=== PATIENT | female | born 1940 | race Two or more races ===

== ENCOUNTER 2018-05-04 11:35 | Inpatient (IN) | payer OTHER ==
[~2018-05-04] VITALS: Ht 162.6 cm; Wt 92.9 kg
[2018-05-04 12:25] LABS: Basophils # (auto) 0 uL; Basophils % (auto) 0.7 % (0.0-2.0); Eosinophils # (auto) 0.2 uL; Eosinophils % (auto) 3.3 % (0.0-7.0); Hematocrit 42.7 % (36.0-46.0); Hemoglobin 13.5 g/dL (12.2-16.2); Lymphocytes # (auto) 1.5 uL; Mean Corpuscular Hemoglobin 28.4 pg (28.0-32.0); Mean Corpuscular Hgb Conc. 31.5 g/dL (32.0-36.0); Monocytes # (auto) 0.4 uL; Monocytes % (auto) 7.3 % (0.0-12.0); Neutrophils # (auto) 3.5 uL; Neutrophils % (auto) 61.7 % (37.0-80.0); Nucleated Red Blood Cells % 0.2 %; Platelet Count (auto) 114 10^3/uL (140-450); Red Blood Cells 4.75 10^6/uL (4.0-5.20); Red Cell Distribution Width 15.7 % (11.8-14.3); White Blood Cell 5.7 10^3/uL (4.4-10.8)
[2018-05-04 12:42] LABS: Albumin 3.3 g/dL (3.4-5.0); Calcium 8.6 mg/dL (8.5-10.1); Magnesium 2.7 mg/dL (1.6-2.6); Potassium 4.3 mmol/L (3.5-5.1)
[2018-05-04 12:48] LABS: BUN/Creatinine Ratio 25.4; Bilirubin, Total 1.5 mg/dL (0.2-1.0); Total Protein 6.8 g/dL (6.4-8.2)
[2018-05-04 13:58] LABS: Urine Bacteria FEW /hpf (None Seen); Urine Blood Negative /uL (Negative); Urine Mucus FEW (None Seen); Urine Specific Gravity 1.009 (1.001-1.035); Urine WBC 2 /hpf (0 - 5)
[2018-05-04 14:28] LABS: INR 1.05 (0.9-1.15); Partial Thromboplastin Time 27.3 sec (23.78-33.04); Prothrombin Time 11.2 sec (9.27-12.13)
[2018-05-04] MEDS ORDERED: cefTRIAXone 1GM/50ML D5W 50 ML IV ONE ×2 (14:30→15:00)
[2018-05-04] MEDS ORDERED: FUROSEMIDE 40 MG/4 ML VIAL IV ONE (14:30)
[2018-05-04] MEDS ORDERED: TEMAZEPAM 15 MG CAP PO PRN (15:00)
[2018-05-04] MEDS ORDERED: LACTULOSE 20Gm/30ML SOLN PO PRN (15:00)
[2018-05-04] MEDS ORDERED: MORPHINE SULFATE 10 MG/ML INJ 1ML SDV IV PRN ×2 (15:00)
[2018-05-04] MEDS ORDERED: HYDROcodone-ACET 5/325MG TAB PO PRN (15:00)
[2018-05-04] MEDS ORDERED: NITROGLYCERIN 0.4 MG SL TAB SL PRN (15:00)
[2018-05-04] MEDS ORDERED: LORazepam 0.5 MG TAB PO PRN (15:00)
[2018-05-04] MEDS ORDERED: PROMETHAZINE HCL 25 MG/ML 1ML IV PRN (15:00)
[2018-05-04] MEDS: FUROSEMIDE 40 MG/4 ML VIAL IV SCH (19:00)
[2018-05-04] MEDS: SODIUM CHLOR 0.9% PF (SALINE LOCK) 10ML VIAL/SYR IV SCH (22:49)
[2018-05-04] MEDS: CARVEDILOL 3.125 MG TAB PO SCH (22:52)
[2018-05-05 01:00] VITALS: BP 86/52
--- NOTE | 2018-05-05 01:00 | NUR ---
Admit to [facility] admitted to [facility] via gurney on rn cardiac cath, and portable 02. Patient transferred to bed, connected to unit monitoring and oxygen, and [facility]. Patient oriented to Maria Alejandra Orellana, primary RN, unit, room, bed, and unit policies regarding patient care and visiting hours. All questions and concerns addressed, patient verbalized understanding.
--- NOTE | 2018-05-05 03:18 | NUR ---
IV insertion IV access obtained, via clean sterile technique by inserting 20 gauge catheter at left hand after 2 attempts. IV secured properly. No trauma to site. Patient tolerated procedure well.
[2018-05-05] MEDS: SODIUM CHLOR 0.9% PF (SALINE LOCK) 10ML VIAL/SYR IV SCH ×3 (07:04→21:57)
[2018-05-05] MEDS: FUROSEMIDE 40 MG/4 ML VIAL IV SCH ×2 (07:06→17:45)
[2018-05-05 07:25] LABS: Potassium 4.1 mmol/L (3.5-5.1)
--- NOTE | 2018-05-05 07:30 | NUR ---
RECEIVED PATIENT SITTING UP IN THE BED, O2 AT 3L BY N/C, A/O TIMES 4, NO COMPLAINTS OF PAIN, STATES SHE CAN USE THE BSC, 20G SALINE LOCK TO THE LEFT HAND FLUSHED AND PATENT
[2018-05-05 07:34] LABS: Albumin 2.9 g/dL (3.4-5.0); Bilirubin, Total 1.5 mg/dL (0.2-1.0); Calcium 8.5 mg/dL (8.5-10.1); Total Protein 6.3 g/dL (6.4-8.2)
[2018-05-05 08:00] VITALS: BP 111/68
--- NOTE | 2018-05-05 08:30 | NUR ---
SAT UP IN BED AND ATE HER BREAKFAST
[2018-05-05] MEDS ORDERED: ATOR10TA PO (09:15)
[2018-05-05] MEDS ORDERED: IVAB1.7T PO (09:15)
[2018-05-05] MEDS ORDERED: SACU1TAB PO (09:15)
[2018-05-05] MEDS ORDERED: POTA10TA51 PO (09:15)
[2018-05-05] MEDS ORDERED: CLOP75TA41 PO (09:15)
[2018-05-05] MEDS ORDERED: ACET-1304 PO (09:15)
[2018-05-05] MEDS ORDERED: FURO40TA4 PO (09:15)
[2018-05-05] MEDS ORDERED: CAR125T PO (09:15)
--- NOTE | 2018-05-05 09:30 | NUR ---
VENOUS DOPPLER STUDY BEING DONE
[2018-05-05] MEDS: NITROGLYCERIN 0.2MG/HR TOPICAL PATCH TD SCH (10:00)
[2018-05-05] MEDS ORDERED: POTASSIUM CHL 20 Meq TABLET PO SCH (10:00)
[2018-05-05] MEDS ORDERED: FUROSEMIDE 40 MG/4 ML VIAL IV SCH (10:00)
[2018-05-05] MEDS: CARVEDILOL 3.125 MG TAB PO SCH ×2 (10:00→22:00)
[2018-05-05] MEDS ORDERED: ENOXAPARIN SOD 40 MG/0.4 ML SYRINGE SC SCH (10:00)
[2018-05-05] MEDS: ENALAPRIL MALEATE 2.5 MG TAB PO SCH (10:00)
[2018-05-05] MEDS: ASPirin 81 mg TAB PO SCH (10:00)
--- NOTE | 2018-05-05 10:10 | NUR ---
UP TO THE BESIDE COMMODE AND URINATED
--- NOTE | 2018-05-05 10:17 | NUR ---
ORDER AND CLINICALS FAXED TO [facility] REQUESTING HOME HEALTH.
--- NOTE | 2018-05-05 10:30 | NUR ---
IN TO VISIT WITH THE PATIENT
[2018-05-05] MEDS: PANTOPRAZOLE 40 MG TAB PO SCH (11:00)
[2018-05-05] MEDS: cefTRIAXone 1GM/50ML D5W 50 ML IV SCH (11:00)
[2018-05-05] MEDS: POTASSIUM EFFERVESENT TAB 25 MEQ PO SCH (11:00)
--- NOTE | 2018-05-05 11:00 | NUR ---
EXPLAIN MEDICATIONS TO THE PATIENT REGARDING THE DOSAGE, USAGE, AND THE SIDE EFFECTS, VERBALIZED THAT SHE UNDERSTOOD BUT B/P MED HELD DUE TO B/P BEING LESS THAN 100
[2018-05-05] MEDS: ENOXAPARIN SOD 40 MG/0.4 ML SYRINGE SC SCH (11:01)
--- NOTE | 2018-05-05 11:43 | NUR ---
UP TO THE BSC GET SO WITH ACTIVITY WHEN GETTING UP
[2018-05-05 11:50] VITALS: BP 104/64
--- NOTE | 2018-05-05 12:30 | NUR ---
SAT UP IN BED AND ATE HER LUNCH NO HELP NEEDED
--- NOTE | 2018-05-05 13:30 | NUR ---
IN TO VISIT DENIES PAIN AT THIS TIME
--- NOTE | 2018-05-05 14:17 | NUR ---
GETTING UP TO THE BSC STILL GETS SOB WITH MOVING OUT OF THE BED
--- NOTE | 2018-05-05 15:26 | NUR ---
IN TO SEE THE PATIENT
[2018-05-05 15:53] VITALS: BP 90/44
--- NOTE | 2018-05-05 16:45 | NUR ---
TYLENOL GIVEN FOR H/A 10/26
[2018-05-05] MEDS: ACETAMINOPHEN 500 MG TAB PO PRN (16:46)
--- NOTE | 2018-05-05 17:34 | NUR ---
SITTING UP IN THE BED WITH EYES CLOSED, NO COMPLAINTS
[2018-05-05] MEDS ORDERED: DOBUTamine 1000MCG/ML 250 ML IV SCH (17:45)
--- NOTE | 2018-05-05 18:37 | NUR ---
DR KEITA IN TO SEE THE PATIENT AND STATED TO START HER ON DOBUTAMINE AND TO ONLY HOLD THE LASIX IF THE B/P IS 80 OR LESS Addendum: 05/05/18 at 1840 by Veronica Lazar RN CHANGE TIME TO 173O
--- NOTE | 2018-05-05 18:40 | NUR ---
SITTING UP IN THE BED EATING HER DINNER, ONLY WANTED JELL-O AND FRUIT, A/O TIMES 4, NO COMPLAINTS OF PAIN, O2 AT 3L BY N/C, SALINE LOCK TO THE LEFT HAND INTACT, FLUSHED AND PATENT GETTING UP TO THE BSC, WILL CONTINUE TO MONITOR AND GIVE REPORT TO THE NEXT SHIFT
[2018-05-05 19:45] VITALS: BP 105/50
--- NOTE | 2018-05-05 20:00 | NUR ---
Opening Shift Note Assumed care of patient, awake and alert. Breathing even and nonlabored at rest, on O2NC 4LPM, No S/S of distress/SOB. Denies pain. Saline lock at left, flushed well, CDI site. Due to void, BSC at bedside. Bed in low position, call light within reach, all alarms are audible, fall and safety precautions in place. Will administer Dobutrex IV as ordered. Instructed on POC and to call for assist PRN, will continue to monitor for changes Q1hr and PRN. Addendum: 05/06/18 at 0319 by Deni Son RN PM care offered, Pt will call when ready.
[2018-05-05] MEDS: DOBUTamine 1000MCG/ML 250 ML IV SCH (20:17)
--- NOTE | 2018-05-05 20:20 | NUR ---
Elimination Pt went to BSC by self, voided 350ml clear yellowish urine, wiped self. Pt has SOB with exertion, deep breathing exercise and relaxation technique encouraged. Pt verbalized understanding and will comply. Continue care.
--- NOTE | 2018-05-05 22:00 | NUR ---
João alba, unable to weigh. Addendum: 05/06/18 at 0622 by Deni Son RN Amended: Links added.
--- NOTE | 2018-05-05 22:00 | NUR ---
IV removal IV DC'd with clean sterile technique, catheter fully intact. Pressure dressing applied to site. Patient tolerated well. IV insertion IV access obtained, via clean sterile technique by inserting 22 gauge catheter at right hand after 1 attempt. IV secured properly. No trauma to site. Patient tolerated well. NOTE:
[2018-05-06] VITALS: BP 121/59
--- NOTE | 2018-05-06 | NUR ---
Condition update V/S stable. No fever. C/O headache, will administer Tylenol as order, see EMAR for details. Continue care.
[2018-05-06] MEDS: ACETAMINOPHEN 500 MG TAB PO PRN ×2 (00:10→19:40)
--- NOTE | 2018-05-06 02:45 | NUR ---
Elimination/ Bathe Pt got OOB for urination. Voided 150ml clear yellowish urine. Asked for AM care. Assisted with mouth care done, partial bath and linen changed done. Will clean the rest after Pt get OOB to BSC next time. Continue care.
[2018-05-06] MEDS: DOBUTamine 1000MCG/ML 250 ML IV SCH ×2 (05:28→15:23)
[2018-05-06] MEDS: SODIUM CHLOR 0.9% PF (SALINE LOCK) 10ML VIAL/SYR IV SCH ×3 (05:45→22:28)
[2018-05-06] MEDS: FUROSEMIDE 40 MG/4 ML VIAL IV SCH (05:45)
--- NOTE | 2018-05-06 06:00 | NUR ---
IV insertion/ Summary IV access obtained, via clean sterile technique by inserting 22 gauge catheter at right FA after 2 attempt(s). IV secured properly. No trauma to site. Patient tolerated procedure well. Pt able to sleep better last night. AM care done, linen changed. Skin assessed done, no new changes. Continue care and will endorsed to day nurse.
[2018-05-06 06:39] LABS: BUN/Creatinine Ratio 22.1; Calcium 8.3 mg/dL (8.5-10.1); Potassium 3.7 mmol/L (3.5-5.1)
--- NOTE | 2018-05-06 07:30 | NUR ---
RECEIVED PATIENT SITTING UP IN THE BED STATES SHE IS FEELING BETTER, A/O TIMES 4, O2 AT 3L BY N/C PLACED HUMIDIFIER STATES NOSE IS GETTING DRY AND BLEEDING, GETTING UP TO THE BSC, SALINE LOCK TO THE RFA 22G INTACT AND PATENT, RT HAND WITH DOBUTAMINE AT 5MCG INFUSING BY THER IV PUMP, DENIES PAIN BUT STATES SHE IS URINATING A LOT, EXPRESS TO HER IT IS BECAUSE OF THE LASIX, STATES SHE KNOWS , STATES HER LEGS AND ARMS ARE STILL SWOLLEN
--- NOTE | 2018-05-06 07:50 | NUR ---
ALFREDO PACEMAKER REP HER TO INVESTIGATE THE PACEMAKER
[2018-05-06 08:00] VITALS: BP 105/59
--- NOTE | 2018-05-06 08:30 | NUR ---
SAT UP IN BED AND ATE HER BREAKFAST NO HELP NEEDED
[2018-05-06] MEDS: cefTRIAXone 1GM/50ML D5W 50 ML IV SCH (09:08)
[2018-05-06] MEDS: ASPirin 81 mg TAB PO SCH (09:27)
--- NOTE | 2018-05-06 09:32 | NUR ---
DR CHOPRA IN TO SEE THE PATIENT AND STATED HE IS GOING TO TRANSFER HER TO [facility]
--- NOTE | 2018-05-06 09:49 | NUR ---
PATIENT WILL TRANSFER TO [facility] WHEN BED IS AVAILABLE. [facility] HAS BEEN PUT ON WILL CALL WITH [facility]. AUTH [id number]. PLEASE CALL [facility] AT [phone] WHEN PATIENT IS READY TO TRANSPORT
[2018-05-06] MEDS: ENALAPRIL MALEATE 2.5 MG TAB PO SCH (10:00)
[2018-05-06] MEDS: ENOXAPARIN SOD 40 MG/0.4 ML SYRINGE SC SCH (10:00)
[2018-05-06] MEDS: NITROGLYCERIN 0.2MG/HR TOPICAL PATCH TD SCH (10:00)
[2018-05-06] MEDS: CARVEDILOL 3.125 MG TAB PO SCH ×2 (10:14→22:00)
[2018-05-06] MEDS: PANTOPRAZOLE 40 MG TAB PO SCH (10:15)
[2018-05-06] MEDS: POTASSIUM EFFERVESENT TAB 25 MEQ PO SCH (10:15)
--- NOTE | 2018-05-06 10:15 | NUR ---
IN TO VISIT WITH THE PATIENT
--- NOTE | 2018-05-06 10:20 | NUR ---
DISCUSSED MEDICATIONS WITH THE PATIENT REGARDING THE DOSAGE, USAGE, AND THE SIDE EFFECTS, VERBALIZED SHE UNDERSTOOD AND MEDS TAKEN ORDERED EXCEPT THE NITRO PATCH AND THE LOVENOX PATIENT REFUSED, STATES SHE IS GETTING UP AND TURNING HERSELF IN THE BED,
--- NOTE | 2018-05-06 11:20 | NUR ---
ALFREDO PACEMAKER REP BACK TO CHANGE THE PACER RATE, PATIENT STATES SHE IS FEELING TIRED, INCREASED THE RATE TO 80 IN THE DAY AND 70 AT NIGHT
[2018-05-06 12:00] VITALS: BP 111/40
[2018-05-06] MEDS ORDERED: FUROSEMIDE INJECTION 250 MG in D5W 5% 225 ML IV SCH (12:00)
--- NOTE | 2018-05-06 12:09 | NUR ---
UP TO THE BSC NO HELP NEEDED
--- NOTE | 2018-05-06 12:35 | NUR ---
SAT UP ON THE SIDE OF THE BED AND ATE HER LUNCH
--- NOTE | 2018-05-06 13:22 | NUR ---
CRYSTAL FU HER TO PLACE A MIDLINE FOR THE LASIX DRIP
--- NOTE | 2018-05-06 14:29 | NUR ---
Midline Placement to left upper arm. 18g/10cm in length. Flushes easily, blood return obtained from single port. Appreciative. Primary RN notified. Lot#[id number].
--- NOTE | 2018-05-06 14:40 | NUR ---
back to visit with the patient
[2018-05-06] MEDS: ALBUMIN 25% 100 ML IV SCH ×2 (15:22→20:43)
--- NOTE | 2018-05-06 15:40 | NUR ---
no complaints of pain just states she is urinating a lot but still refuses to get a adams placed
[2018-05-06 16:00] VITALS: BP 100/70
--- NOTE | 2018-05-06 16:40 | NUR ---
no change in condition continue to monitor
--- NOTE | 2018-05-06 17:40 | NUR ---
siting on the side of the bed aware that she is going to [facility] tonight, dobutamine and lasix drip infusing
--- NOTE | 2018-05-06 18:08 | NUR ---
sitting up in bed eating her dinner, dr avery in to see the patient and wrote for new meds for the transfer
--- NOTE | 2018-05-06 18:30 | NUR ---
SITTING UP IN THE BED AFTER TALKING TO HER , ATE DINNER AND TOLERATED, A/O TIMES 4, AWARE THAT SHE IS BEING TRANSFERRED TO [facility] ABLE TO GET UP TO THE BSC WITH MINIMAL HELP AND TOLERATED, DOBUTAMINE DRIP AT 5MCG,KG,MIN INFUSING INTO THE RT HAND AND LASIX DRIP AT 10ML/HR INFUSING INTO THE EMPERATRIZ MIDLINE BOTH INFUSING BY THE IV PUMP, SALINE LOCK TO THE RFA 22G, NO COMPLAINTS OF PAIN, CALL TO GIVE REPORT AT [facility] AND STATED TO CALL BACK WHEN PATIENT IS GOING OU THE DOOR, WILL CONTINUE TO MONITOR AND GIVE REPORT OT THE NEXT SHIFT
--- NOTE | 2018-05-06 19:45 | NUR ---
Opening Shift Note Assumed care of patient, awake and alert. No S/S of distress/SOB , patient c/o generalized headache 6/10 pain, medicated per orders: see emar. Patient aware of pending xfer to [facility]. Offered to call patient's to update him on xfer and room number, per patient he is aware. Instructed on POC and to call for assist PRN, will continue to monitor for changes Q1hr and PRN.
[2018-05-06 20:00] VITALS: BP 107/65
--- NOTE | 2018-05-06 20:30 | NUR ---
SPOKE WITH KRISTEN ROSS 2 HOURS
--- NOTE | 2018-05-06 21:31 | NUR ---
REPORT GIVEN TO AGATHA FU AT [facility] , ALL QUESTIONS AND CONCERNS ADDRESSED PATIENT WILL BE GOING TO ROOM 231A TELE FLOOR
[2018-05-06] MEDS ORDERED: MEXILETINE HYDROCHLORIDE 150 MG CAP PO SCH (22:00)
--- NOTE | 2018-05-06 23:32 | NUR ---
NARES SWABBED FOR MRSA AND SENT TO LAB VIA BULLET PER HOSPITAL POLICY
[2018-05-06 23:33] VITALS: BP 102/61
--- NOTE | 2018-05-07 00:09 | NUR ---
Pt being trans to another hosp Order obtained for transfer of BRANNON MCGILL to [facility]. Report called/given to AGATHA FU. Report given to EMS transport team and Young FU. Medication reconciliation form completed and copy given to patient. Transported via gurney along with copied chart and imaging films/disk and all personal belongings. No distress noted on time of departure. Family aware of destination. NOTE: vs stable upon departure
== END 2018-05-07 00:08 | disposition short-term general hospital (02) | DRG 291 ==
LOC: EDBD 11:35 → ER 11:45 → TELE 15:02 → DOU IN ICU 05-05 00:58
PROVIDERS: ADMIT Internal Medicine; ATTEND Family Medicine
DX: I13.0 Hypertensive heart and chronic kidney disease with heart failure and stage 1 through stage 4 chronic kidney disease, or unspecified chronic kidney disease (principal); I50.23 Acute on chronic systolic (congestive) heart failure; N39.0 Urinary tract infection, site not specified; I42.0 Dilated cardiomyopathy; I49.3 Ventricular premature depolarization; I25.10 Atherosclerotic heart disease of native coronary artery without angina pectoris; E78.5 Hyperlipidemia, unspecified; F32.9 Major depressive disorder, single episode, unspecified; E66.01 Morbid (severe) obesity due to excess calories; D69.6 Thrombocytopenia, unspecified; G47.33 Obstructive sleep apnea (adult) (pediatric); I44.7 Left bundle-branch block, unspecified; J44.9 Chronic obstructive pulmonary disease, unspecified; N18.3 Chronic kidney disease, stage 3 (moderate); G89.29 Other chronic pain; M54.5 Low back pain; Z79.01 Long term (current) use of anticoagulants; Z95.810 Presence of automatic (implantable) cardiac defibrillator; Z82.49 Family history of ischemic heart disease and other diseases of the circulatory system; Z86.73 Personal history of transient ischemic attack (TIA), and cerebral infarction without residual deficits; Z91.19 Patient's noncompliance with other medical treatment and regimen; Z68.35 Body mass index [BMI] 35.0-35.9, adult
CPT/HCPCS: 36415; 71045; 80048; 80053; 80061; 81001; 82550; 83735; 83880; 84443; 84484; 85025; 85379; 85610; 85730; 87081; 87086; 93970; 94761; 96365; 96375; A6257; G0378; J0696; J7060; P9047